=== PATIENT | female | born 1945 | race Caucasian/White ===

== ENCOUNTER 2017-04-08 15:23 | Emergency (ER) | payer MEDICARE, BC ==
--- NOTE | 2017-04-08 16:10 | UC ---
Complaint Female HPI - HPI Summary HPI Summary: some burning and pressure with urination not sure if she has a UTI or a yeast infection--no fevers chills or back pain - History Of Current Complaint Chief Complaint: UCGU Stated Complaint: URINARY Time Seen by Provider: 04/08/17 16:04 Hx Obtained From: Patient Hx Last Menstrual Period: n/a ?: No Onset/Duration: Sudden Onset, Lasting Days, Still Present Timing: Constant Severity Initially: Mild Severity Currently: Mild Character: Burning Aggravating Factor(s): Urination Alleviating Factor(s): Nothing Associated Signs And Symptoms: Positive: Negative - Allergies/Home Medications Allergies/Adverse Reactions: Allergies Allergy/AdvReac Type Severity Reaction Status Date / Time Nitrofurantoin Allergy Hives Verified 04/08/17 16:14 [From Macrobid] Sulfamethoxazole Allergy Rash Verified 11/10/14 10:44 w/Trimethoprim [From Bactrim] Home Medications: Home Medications Diltiazem CD CAP* [Cardizem CD CAP*] 120 mg PO DAILY 04/08/17 [History Confirmed 04/08/17] PMH/Surg Hx/FS Hx/Imm Hx Previously Healthy: No Cardiovascular History: Hypertension GI/ History: Gastroesophageal Reflux - Surgical History Surgical History: Yes Surgery Procedure, Year, and Place: lumpectomy - Family History Known Family History: Positive: None - Social History Occupation: Employed Full-time Lives: With Family Alcohol Use: Occasionally Substance Use Type: None Smoking Status (MU): Former Smoker Review of Systems Constitutional: Negative Skin: Negative Eyes: Negative ENT: Negative Respiratory: Negative Cardiovascular: Negative Gastrointestinal: Negative Genitourinary: Dysuria Motor: Negative Neurovascular: Negative Musculoskeletal: Negative Neurological: Negative Psychological: Negative All Other Systems Reviewed And Are Negative: Yes Physical Exam Triage Information Reviewed: Yes Appearance: Well-Appearing, No Pain Distress, Well-Nourished Vital Signs Reviewed: Yes Eye Exam: Normal Eyes: Positive: Conjunctiva Clear ENT Exam: Normal ENT: Positive: Normal ENT inspection, Hearing grossly normal. Negative: Nasal congestion, Nasal drainage, Trismus, Muffled/hoarse voice Dental Exam: Normal Neck exam: Normal Neck: Positive: Supple, Nontender, No Lymphadenopathy Respiratory Exam: Normal Respiratory: Positive: Chest non-tender, Normal breath sounds, No respiratory distress, No accessory muscle use Cardiovascular Exam: Normal Cardiovascular: Positive: RRR, Pulses Normal, Brisk Capillary Refill Abdominal Exam: Normal Abdomen Description: Positive: Nontender, No Organomegaly, Soft Bowel Sounds: Positive: Present Musculoskeletal Exam: Normal Musculoskeletal: Positive: Strength Intact, ROM Intact, No Edema Neurological Exam: Normal Neurological: Positive: Alert, Muscle Tone Normal Psychological Exam: Normal Skin Exam: Normal Complaint Female Dx - Course Course Of Treatment: pt refused pelvic examination---prefers to try OTC Monostat and then follow with PCP - Differential Dx/Diagnosis Differential Diagnosis/HQI/PQRI: Pelvic Inflammatory Disease, Renal Colic, Ureteral Stone, Urinary Tract Infection Provider Diagnoses: Vulvocandidiasis, dysuria Discharge - Discharge Plan Condition: Stable Disposition: HOME Patient Education Materials: Vulvovaginal Candidiasis (ED), Dysuria (ED) Referrals: [facility]ovanna Garcia MD [Primary Care Provider[facility] - 04/22/17
[2017-04-08 16:12] VITALS: BP 145/68
== END 2017-04-08 16:31 | disposition home or self-care (01) ==
LOC: UCCORT 15:23
DX: B37.3 Candidiasis of vulva and vagina (principal); R30.0 Dysuria; I10 Essential (primary) hypertension; Z87.891 Personal history of nicotine dependence
CPT/HCPCS: 81003; 99211; G0463

== ENCOUNTER 2017-04-22 08:28 | Emergency (ER) | payer MEDICARE, BC ==
[2017-04-22 08:38] VITALS: BP 131/64
--- NOTE | 2017-04-22 08:46 | UC ---
Eye Complaint HPI - HPI Summary HPI Summary: complaint of swelling around her right eye had an insect bite yesterday and then her eye swelled up this morning feels more swollen and slightly warm took a benadryl last night and swelling lessened last night denies eye pain denies vision changes denies fever - History of Current Complaint Chief Complaint: [place] Stated Complaint: RIGHT EYE COMPLAINT Time Seen by Provider: 04/22/17 08:38 Hx Obtained From: Patient Hx Last Menstrual Period: n/a - Allergies/Home Medications Allergies/Adverse Reactions: Allergies Allergy/AdvReac Type Severity Reaction Status Date / Time Nitrofurantoin Allergy Hives Verified 04/22/17 08:33 [From Macrobid] Sulfamethoxazole Allergy Rash Verified 04/22/17 08:33 w/Trimethoprim [From Bactrim] PMH/Surg Hx/FS Hx/Imm Hx Previously Healthy: Yes Cardiovascular History: Hypertension GI/ History: Gastroesophageal Reflux - Surgical History Surgical History: Yes Surgery Procedure, Year, and Place: lumpectomy - Family History Known Family History: Positive: None Negative: Cardiac Disease, Hypertension, Diabetes - Social History Occupation: Retired Lives: With Family Alcohol Use: Daily Alcohol Amount: wine daily Substance Use Type: None Smoking Status (MU): Former Smoker When Did the Patient Quit Smoking/Using Tobacco: 36 years ago Review of Systems Constitutional: Negative Skin: Negative Eyes: Other - swelling around right eye ENT: Negative Respiratory: Negative Cardiovascular: Negative Gastrointestinal: Negative Genitourinary: Negative Motor: Negative Neurovascular: Negative Musculoskeletal: Negative Neurological: Negative Psychological: Negative All Other Systems Reviewed And Are Negative: Yes Physical Exam Triage Information Reviewed: Yes Appearance: No Pain Distress, Well-Nourished Vital Signs: Initial Vital Signs Temp 98.3 F 04/22/17 08:34 Pulse 65 04/22/17 08:34 Resp 18 04/22/17 08:34 BP 131/64 04/22/17 08:34 Pulse Ox 99 04/22/17 08:34 Vital Signs Reviewed: Yes Eyes: Positive: Conjunctiva Clear, Other: - right eye- edema around uper and lower lids that extends slightly around orbit- warm to touch EOMI, PERRL ENT: Positive: Pharynx normal, TMs normal Neck: Positive: No Lymphadenopathy Respiratory: Positive: Lungs clear, Normal breath sounds, No respiratory distress Cardiovascular: Positive: RRR, No Murmur, Pulses Normal Abdomen Description: Positive: Nontender, Soft Bowel Sounds: Positive: Present Musculoskeletal: Positive: No Edema Neurological: Positive: Alert Psychological Exam: Normal Skin Exam: Normal Eye Complaint Course/Dx - Course Course Of Treatment: exam completed. significant swelling right eyelids and into orbit- EOMI - no eye pain or vision chnages. will treat with course of augmentin and benadryl. discussed s/s of when to seek medical care and pt states understanding - Differential Dx/Diagnosis Differential Diagnosis/HQI/PQRI: Periorbital Cellulitis, Orbital Cellulitis Provider Diagnoses: right orbital edema Discharge - Discharge Plan Condition: Stable Disposition: HOME Prescriptions: Amoxicillin/Clavulanate TAB* [Augmentin TAB 875*] 875 mg PO BID #20 tab Patient Education Materials: Periorbital Cellulitis in Adults (ED) Referrals: Geovanna Garcia MD [Primary Care Provider] - Additional Instructions: Please start antibiotic as directed take benadryl 25 mg by mouth twice a day for 2 days Increase fluids and rest return to clinic if you develop eye pain , fever or swelling increases Please review your discharge instructions. If your symptoms do not improve please call your primary care provider or return to urgent care.
== END 2017-04-22 08:56 | disposition home or self-care (01) ==
LOC: UCCORT 08:28
DX: H05.229 Edema of unspecified orbit (principal); I10 Essential (primary) hypertension; K21.9 Gastro-esophageal reflux disease without esophagitis; Z87.891 Personal history of nicotine dependence
CPT/HCPCS: 99212; G0463

== ENCOUNTER 2017-10-28 14:44 | Emergency (ER) | payer MEDICARE, BC ==
[2017-10-28 16:44] VITALS: BP 151/74
[2017-10-28] MEDS ORDERED: Cephalexin CAP* 500 MG PO ONE (17:04)
[2017-10-28] MEDS ORDERED: guaiFENesin LIQ* 100 MG/5 ML UDC PO ONE (17:15)
--- NOTE | 2017-10-28 17:15 | ED ---
Respiratory - HPI Summary HPI Summary: 72 year old female presents with complains of cough and urinary frequency. - History of Current Complaint Chief Complaint: UCGeneralIllness Stated Complaint: FEVER,COUGH Time Seen by Provider: 10/28/17 16:41 Hx Obtained From: Patient Onset/Duration: Sudden Onset Initial Severity: Moderate Current Severity: Moderate Pain Intensity: 0 Aggravating Factor(s): Nothing Alleviating Factor(s): Nothing - Allergy/Home Medications Allergies/Adverse Reactions: Allergies Allergy/AdvReac Type Severity Reaction Status Date / Time Nitrofurantoin Allergy Hives Verified 10/28/17 16:31 [From Macrobid] Sulfamethoxazole Allergy Rash Verified 10/28/17 16:31 w/Trimethoprim [From Bactrim] Home Medications: Home Medications Calcium [Chelated Calcium] 200 mg PO 10/28/17 [History] Cranberry (Vaccinium Macrocarp [Cranberry] 1 pow XX 10/28/17 [History Confirmed 10/28/17] Docosahexaenoic Acid [Dha Amo 3] 100 mg PO 10/28/17 [History] Flaxseed (Linseed) [Flax Oil] 1 oil PO 10/28/17 [History] Ibuprofen TAB* [Advil TAB*] 400 mg PO Q6H PRN 10/28/17 [History Confirmed ] [place] 200 mg PO Q6H PRN 10/28/17 [History] PMH/Surg Hx/FS Hx/Imm Hx Cardiovascular History: Reports: Hx Hypertension - Cancer History Cancer Type, Location and Year: breast cancer - Surgical History Surgery Procedure, Year, and Place: lumpectomy Infectious Disease History: No Infectious Disease History: Denies: Traveled Outside the [place] in Last 30 Days - Family History Known Family History: Positive: None Negative: Cardiac Disease, Hypertension, Diabetes - Social History Alcohol Use: Daily Alcohol Amount: wine daily Substance Use Type: Reports: None Smoking Status (MU): Former Smoker Review of Systems Constitutional: Negative Eyes: Negative ENT: Negative Cardiovascular: Negative Positive: Cough Genitourinary: Negative Positive: frequency, pain, urgency Neurological: Negative Psychological: Normal All Other Systems Reviewed And Are Negative: Yes Physical Exam Triage Information Reviewed: Yes Vital Signs On Initial Exam: Initial Vitals Temp Pulse Resp BP Pulse Ox 37.6 C 84 18 151/74 99 10/28/17 16:36 10/28/17 16:36 10/28/17 16:36 10/28/17 16:36 10/28/17 16:36 Vital Signs Reviewed: Yes Appearance: Positive: Well-Appearing Skin: Positive: Warm Head/Face: Positive: Normal Head/Face Inspection Eyes: Positive: Normal ENT: Positive: Normal ENT inspection Neck: Positive: Supple Respiratory/Lung Sounds: Positive: Clear to Auscultation Cardiovascular: Positive: Normal Abdomen Description: Positive: Nontender Bowel Sounds: Positive: Present Musculoskeletal: Positive: Normal Psychiatric: Positive: Normal AVPU Assessment: Alert Diagnostics - Vital Signs Vital Signs Temp Pulse Resp BP Pulse Ox 10/28/17 16:36 37.6 C 84 18 151/74 99 - Laboratory Lab Results: Lab Results 10/28/17 Range/Units 16:44 POC Urine Color Yellow POC Urine Clarity Slightly cloudy POC Urine pH 7.0 (5-9) POC Ur Specif [place] 1.010 (1.010-1.030) POC Urine Protein Negative (Negative) POC Ur Glucose (UA) Negative (Negative) POC Urine Ketones Negative (Negative) POC Urine Blood Negative (Negative) POC Urine Nitrite Positive H (Negative) POC Urine Bilirubin Negative (Negative) POC Urine Urobilinogen 0.2 (Negative) POC U Leukocyte Esteras 1+ H (Negative) Lab Statement: Any lab studies that have been ordered have been reviewed, and results considered in the medical decision making process. Disposition - Diagnoses Provider Diagnoses: UTI (urinary tract infection), Rhinitis Discharge - Discharge Plan Condition: Stable Disposition: HOME Prescriptions: Cephalexin CAP* [Keflex CAP*] 500 mg PO TID #21 cap Guaifenesin-Codeine [Cheratussin AC] 1 teasp PO Q8H PRN #120 syp MDD 15 ml PRN Reason: Cough LoraTADine TAB(NF) [Claritin 10 MG TAB(NF)] 10 mg PO DAILY #30 tab Patient Education Materials: Urinary Tract Infection in Women (ED), Allergic Rhinitis (ED) Referrals: Geovanna Garcia MD [Primary Care Provider] -
[2017-10-28] MEDS ORDERED: guaiFENesin/CODIEN 100MG-10MG* 5 ML UDC PO ONE (17:21)
== END 2017-10-28 17:10 | disposition home or self-care (01) ==
LOC: UCCORT 14:44
DX: N39.0 Urinary tract infection, site not specified (principal); J31.0 Chronic rhinitis; I10 Essential (primary) hypertension; Z85.3 Personal history of malignant neoplasm of breast; Z87.891 Personal history of nicotine dependence; Z88.1 Allergy status to other antibiotic agents; Z88.2 Allergy status to sulfonamides
CPT/HCPCS: 81003; 87077; 87086; 87186; 99212; A9270-GY; G0463

== ENCOUNTER 2019-06-28 09:50 | Emergency (ER) | payer MEDICARE, BC ==
--- OUTSIDE RECORDS SUMMARY | 2019-06-28 10:06 | XMS REPORT | Continuity of Care Document ---
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 [phone] Problems Active Problems Provider Date Malignant neoplasm of female breast Enrrique Pro MD Onset: 02/21/2012 Note: right breast Derangement of posterior horn of medial Joesph Arriaza D.OMindy Onset: 2014 meniscus Localized, primary osteoarthritis Gabbi Mahmood PA Onset: 05/29/2018 Social History Type Date Description Comments Sex Unknown Tobacco Use Start: Unknown End: Former Cigarette Smoker QUIT 32 YEARS AGO Unknown Smoking Status Reviewed: 10/28/80 Former Cigarette Smoker QUIT 32 YEARS AGO ETOH Use Uses Alcohol Daily Recreational Drug Use Denies Drug Use Allergies, Adverse Reactions, Alerts Active Allergies Reaction Severity Comments Date Lactose 05/29/2018 Nitrofurantoin, Monohydrate 05/29/2018 Inactive Allergies Lactose (Intolerance) 02/19/2012 Nitrofurantoin 11/18/2013 Medications Active Medications SIG Qnty Indications Ordering Date Provider Flaxseed Oil 1 by mouth every Unknown 1000mg day Capsules Chelated Calcium 1 by mouth every Unknown day 200mg Tablets Chelated Magnesium 1 by mouth every Unknown day 100mg Tablets Chelated Zinc 1 by mouth every Unknown 50mg day Tablets Cardizem CD 1 by mouth every 30caps Unknown 120mg day Caps ER 24HR Omeprazole 1 by mouth twice a 180caps Unknown 20mg day Capsules DR Vitamin D 2 by mouth every Unknown 400Unit day Capsules Stress 1 by mouth every Unknown B-Complex/C/Zinc day Tablets Culturelle Digestive 1 by mouth every Unknown Health day Capsules Dha 1 by mouth every Unknown 200mg Capsules day [place] 1 by mouth every Unknown day Premarin I 1/4 Apl Unknown 0.625mg/GM Vaginally 2 Times Cream A WK D-Mannose 1 by mouth twice a Unknown 500mg day Capsules Medications Administered in Office Medication SIG Qnty Indications Ordering Provider Date Depomedrol 40mg/1cc Mandy Boggs, 06/25/2019 (methylprednisolone acetate) RPA Injection Depomedrol 40mg/1cc Mandy Boggs, 06/25/2019 (methylprednisolone acetate) RPA Injection Depomedrol 40mg/1cc Mandy Boggs, 03/31/2019 (methylprednisolone acetate) RPAC Injection Euflexxa 2mL prefilled syringe Mandy Boggs, 03/11/2019 Injection RPAC Euflexxa 2mL prefilled syringe Mandy Boggs, 03/04/2019 Injection RPAC Euflexxa 2mL prefilled syringe Mandy Boggs, 02/25/2019 Injection RPAC Methylprednisolone acetate Mandy Boggs, 12/26/2018 (Depomedrol) 80mg injection RPA Injection Depomedrol 40mg/1cc Mandy Boggs, 12/26/2018 (methylprednisolone acetate) RPAC Injection Methylprednisolone acetate Mandy Boggs, 09/15/2018 (Depomedrol) 80mg injection RPA Injection Depomedrol 40mg/1cc Mandy Boggs, 09/15/2018 (methylprednisolone acetate) RPAC Injection Methylprednisolone acetate Gabbi Mahmood PA 05/29/2018 (Depomedrol) 80mg injection Injection Methylprednisolone acetate Gabbi Mahmood PA 05/29/2018 (Depomedrol) 80mg injection Injection Methylprednisolone acetate Mandy Boggs, 02/27/2018 (Depomedrol) 80mg injection RPA Injection Depomedrol 40mg/1cc Mandy Boggs, 02/27/2018 (methylprednisolone acetate) RPAC Injection Methylprednisolone acetate Mandy Boggs, 11/21/2017 (Depomedrol) 80mg injection RPAC Injection Depomedrol 40mg/1cc Mandy Boggs, 11/21/2017 (methylprednisolone acetate) RPAC Injection Methylprednisolone acetate Mandy Boggs, 08/08/2017 (Depomedrol) 80mg injection RPAC Injection Depomedrol 40mg/1cc Mandy Boggs., 08/08/2017 (methylprednisolone acetate) RPAC Injection Methylprednisolone acetate Mandy Boggs, 05/07/2017 (Depomedrol) 80mg injection RPAC Injection Depomedrol 40mg/1cc Mandy Boggs., 05/07/2017 (methylprednisolone acetate) RPAC Injection Methylprednisolone acetate Mandy Boggs, 01/03/2017 (Depomedrol) 80mg injection RPAC Injection Depomedrol 40mg/1cc Mandy Boggs, 01/03/2017 (methylprednisolone acetate) RPAC Injection Methylprednisolone acetate Mandy Boggs, 09/10/2016 (Depomedrol) 80mg injection RPAC Injection Depomedrol 40mg/1cc Mandy Boggs, 09/10/2016 (methylprednisolone acetate) RPAC Injection Methylprednisolone acetate Mandy Boggs, 04/16/2016 (Depomedrol) 80mg injection RPAC Injection Methylprednisolone acetate Mandy Boggs, 12/14/2015 (Depomedrol) 80mg injection RPAC Injection Methylprednisolone acetate Mandy Boggs, 09/26/2015 (Depomedrol) 80mg injection RPAC Injection Methylprednisolone acetate Mandy Boggs, 05/24/2015 (Depomedrol) 80mg injection RPAC Injection Depomedrol 40mg/1cc Mandy Boggs, 05/24/2015 (methylprednisolone acetate) RPAC Injection Methylprednisolone acetate Mandy Boggs, 06/09/2014 (Depomedrol) 80mg injection RPAC Injection Depomedrol 40mg/1cc Mandy Boggs, 11/18/2013 (methylprednisolone acetate) RPAC Injection Immunizations Description No Information Available Vital Signs Date Vital Result Comment 06/25/2019 2:34pm BP Systolic 135 mmHg BP Diastolic 90 mmHg Body Temperature 96.5 F Heart Rate 90 /min Height 60.5 inches 5'0.50" Weight 123.00 lb BMI (Body Mass Index) 23.6 kg/m2 BSA (Body Surface Area) 1.53 m2 [place] body weight in kilograms 47 kg O2 % BldC Oximetry 99 % 03/31/2019 1:47pm BP Systolic Sitting Right Arm 122 mmHg BP Diastolic Sitting Right Arm 76 mmHg Body Temperature 97.7 F Heart Rate 74 /min Height 60 inches 5'0" Weight 120.50 lb BMI (Body Mass Index) 23.5 kg/m2 BSA (Body Surface Area) 1.51 m2 [place] body weight in kilograms 45 kg O2 % BldC Oximetry 98 % Pain Level 6 Bilateral Knee Results Description No Information Available Procedures Date Code Description Status 06/25/201994108 Asp./Injection major joint Completed 06/25/201966927 Asp./Injection major joint Completed 03/31/201953898 Asp./Injection major joint Completed 03/11/201992571 Asp./Injection major joint Completed 03/04/201943561 Asp./Injection major joint Completed 02/25/201985998 Asp./Injection major joint Completed 02/13/2012 [id number] Mammogram Completed 10/28/2010 138347726 Bone Mineral Density Test Completed 10/28/2010 75943885 Mammogram Completed 10/28/2009 81396963 Colonoscopy Completed Medical Devices Description No Information Available Encounters Description No Information Available Assessments Date Code Description Provider 06/25/2019 M17.0 Bilateral primary osteoarthritis of knee Boggs, Mandy S. , [facility] 06/25/2019 M25.561 Pain in right knee Boggs, Mandy S., [facility] 06/25/2019 M25.562 Pain in left knee Boggs, Mandy S., [facility] 03/31/2019 M17.0 Bilateral primary osteoarthritis of knee Boggs, Mandy S. , [facility] 03/31/2019 M25.561 Pain in right knee Boggs, Mandy S., [facility] 03/31/2019 M25.562 Pain in left knee Boggs, Mandy S., [facility] 03/11/2019 M17.0 Bilateral primary osteoarthritis of knee Boggs, Mandy S. , [facility] 03/11/2019 M25.561 Pain in right knee Boggs, Mandy S., [facility] 03/11/2019 M25.562 Pain in left knee Boggs, Mandy S., [facility] 03/04/2019 M17.0 Bilateral primary osteoarthritis of knee BoggsMandy lauren. , [facility] 03/04/2019 M25.561 Pain in right knee Mandy Boggs., [facility] 03/04/2019 M25.562 Pain in left knee Mandy Boggs., [facility] 02/25/2019 M17.0 Bilateral primary osteoarthritis of knee Mandy Boggs. , [facility] 02/25/2019 M25.562 Pain in left knee Mandy Boggs., [facility] 02/25/2019 M25.561 Pain in right knee Mandy Boggs., [facility] Plan of Treatment 05/29/2018 - Gabbi Mahmood, PAM17.0 Bilateral primary osteoarthritis of kneeFollow up:As needed Functional Status Functional Condition Comment Date Status Glasses Active Mental Status Description No Information Available Referrals Description No Information Available
[2019-06-28 10:12] VITALS: BP 145/79
--- NOTE | 2019-06-28 10:21 | UC ---
Ear Complaint HPI - HPI Summary HPI Summary: Generally healthy 74 yo, with one day history of mild ear pain, relieved with ibuprofen, without associated tinnitus, hearing loss or drainage. History of wax accumulation in the past. Travelling to [facility] tomorrow. - History of Current Complaint Chief Complaint: UCEar Stated Complaint: EAR PAIN Time Seen by Provider: 06/28/19 10:10 Hx Obtained From: Patient Hx Last Menstrual Period: n/a Onset/Duration: Sudden Onset Severity Initially: Mild Severity Currently: Mild Pain Intensity: 4 Alleviating Factors: OTC Meds Associated Signs/Symptoms: Negative: Discharge, Hearing Loss - Allergies/Home Medications Allergies/Adverse Reactions: Allergies Allergy/AdvReac Type Severity Reaction Status Date / Time nitrofurantoin Allergy Hives Verified 06/28/19 10:12 [From Macrobid] sulfamethoxazole Allergy Rash Verified 06/28/19 10:12 [From Bactrim] trimethoprim [From Bactrim] Allergy Rash Verified 06/28/19 10:12 PMH/Surg Hx/FS Hx/Imm Hx Previously Healthy: Yes Cardiovascular History: Hypertension - stopped treatment in April, and home BP's have been in the 120's since she stopped diltiazem. GI/ History: Gastroesophageal Reflux - Surgical History Surgical History: Yes Surgery Procedure, Year, and Place: lumpectomy - Family History Known Family History: Positive: None Negative: Cardiac Disease, Hypertension, Diabetes - Social History Occupation: Retired Lives: With Family Alcohol Use: Occasionally Alcohol Amount: wine daily Substance Use Type: None Smoking Status (MU): Former Smoker When Did the Patient Quit Smoking/Using Tobacco: 1980 - Immunization History Most Recent Influenza Vaccination: FALL 2016 Review of Systems All Other Systems Reviewed And Are Negative: Yes Constitutional: Positive: Negative Skin: Positive: Negative ENT: Positive: Ear Ache Is Patient Immunocompromised?: No Physical Exam Triage Information Reviewed: Yes Appearance: Well-Appearing, No Pain Distress Vital Signs: Initial Vital Signs Temp 98.7 F 06/28/19 10:07 Pulse 79 06/28/19 10:07 Resp 16 06/28/19 10:07 BP 145/79 06/28/19 10:07 Pulse Ox 100 06/28/19 10:07 Eyes: Positive: Conjunctiva Clear ENT: Positive: Pharynx normal, TMs normal, Other - no ear canal drainage of swelling, no pre- or posterior auricular adenopathy. Scant cerumen. Neck: Positive: Supple, Nontender, No Lymphadenopathy Respiratory: Positive: Lungs clear, Normal breath sounds Cardiovascular: Positive: RRR, No Murmur Neurological Exam: Normal Psychological Exam: Normal Skin Exam: Normal Ear Complaint Course/Dx - Course Course Of Treatment: observation and advil for control of pain - Differential Dx/Diagnosis Differential Diagnosis/HQI/PQRI: Otitis Externa, Otitis Media, URI Provider Diagnosis: Otalgia of right ear Discharge ED - Sign-Out/Discharge Documenting (check all that apply): Patient Departure All imaging exams completed and their final reports reviewed: No Studies - Discharge Plan Condition: Stable Disposition: HOME Patient Education Materials: Earache (ED) Referrals: Geovanna Garcia MD [Primary Care Provider] - Additional Instructions: Continue symptomatic treatment of right ear pain, using advil as needed. - Billing Disposition and Condition Condition: STABLE Disposition: Home
== END 2019-06-28 10:32 | disposition home or self-care (01) ==
LOC: UCCORT 09:50
DX: H92.01 Otalgia, right ear (principal); Z87.891 Personal history of nicotine dependence
CPT/HCPCS: 99211; G0463